=== PATIENT | female | born 1945 | race Caucasian/White ===

== ENCOUNTER → 2017-02-09 | Outpatient (REF) | payer MEDICARE, OTHER | LOC: M LAB REF 13:21 | PROVIDERS: ATTEND Internal Medicine Nephrology | DX: N39.0 Urinary tract infection, site not specified (principal) ==

== ENCOUNTER 2017-09-01 09:19 | Day surgery (SDC) | payer MEDICARE, OTHER ==
[~2017-09-01 09:19] MED LIST: ACETAMINOPHEN 325 MG TAB PO; BSS with VANC/TOB/EPI for EYE CASES IR; PHENYLEPHRINE HCL 10 % OPHTH. SOL 5ML OS; PROPARACAINE 0.5% OPHTH SOL 15ML OS
[2017-09-01] MEDS: LIDOCAINE 3.5 % 1ML OPHTH TOPICAL GEL OU (09:50)
[2017-09-01] MEDS: CYCLOPENTOLATE 2% OPHTH SOLN 2ML BTL OS (09:55)
[2017-09-01] MEDS: PHENYLEPHRINE 2.5% OPHTH SOL 2ML OS (09:55)
[2017-09-01] MEDS: TROPICAMIDE 1% OPHTH SOLN 2ML OS (10:00)
[2017-09-01] MEDS: OFLOXACIN 0.3 % (OCUFLOX) OPTH SOL 5ML OS (10:05)
[2017-09-01] MEDS: LIDOCAINE 1% SDV 5 ML VIAL As Ordered (11:35)
[2017-09-01] MEDS: BALANCED SALT IRRIGATION SOLUTION 500ML BAG (FOR OR EYE MACHINE) As Ordered (11:35)
[2017-09-01] MEDS: ACETYLCHOLINE OPHTH SOLN 1% 2ML (MIOCHOL-E) As Ordered (11:35)
[2017-09-01] MEDS: POVIDONE-IODINE 5% OPHTH PREP SOL 30ML As Ordered (11:35)
[2017-09-01] MEDS: CEFUROXIME 1MG/0.1ML INTRACAMERAL INJ As Ordered (11:35)
[2017-09-01] MEDS: HEALON DUET (HEALON 10MG/ML 0.55ML & HEALON ENDOCOAT 30MG/ML 0.85ML) As Ordered (11:36)
[2017-09-01] MEDS ORDERED: MIDAZOLAM INJ 2 MG/2 ML VIAL (J2250) As Ordered (11:49)
[2017-09-01] MEDS ORDERED: fentaNYL 100 MCG/2 ML INJECTION (J3010) As Ordered (11:49)
[2017-09-01] MEDS ORDERED: TRIMETHOBENZAMIDE 300 MG CAP PO (12:00)
[2017-09-01] MEDS: KETOROLAC 0.5% OPHTH SOLN OS (12:05)
== END 2017-09-01 12:37 | disposition home or self-care (01) ==
LOC: M SDC 09:19
DX: H25.12 Age-related nuclear cataract, left eye (principal); I25.10 Atherosclerotic heart disease of native coronary artery without angina pectoris; M32.10 Systemic lupus erythematosus, organ or system involvement unspecified; I10 Essential (primary) hypertension; E78.5 Hyperlipidemia, unspecified; E03.9 Hypothyroidism, unspecified; K21.9 Gastro-esophageal reflux disease without esophagitis; M06.9 Rheumatoid arthritis, unspecified; Z98.61 Coronary angioplasty status; Z79.82 Long term (current) use of aspirin
CPT/HCPCS: 66984

== ENCOUNTER 2017-09-29 10:51 | Day surgery (SDC) | payer MEDICARE, OTHER ==
[~2017-09-29 10:51] MED LIST changes: -BSS with VANC/TOB/EPI for EYE CASES IR; +CYCLOPENTOLATE 2% OPHTH SOLN 2ML BTL OD; +LIDOCAINE 3.5 % 1ML OPHTH TOPICAL GEL OU; +OFLOXACIN 0.3 % (OCUFLOX) OPTH SOL 5ML OD; +PHENYLEPHRINE 2.5% OPHTH SOL 2ML OD; +PHENYLEPHRINE HCL 10 % OPHTH. SOL 5ML OD; -PHENYLEPHRINE HCL 10 % OPHTH. SOL 5ML OS; +PROPARACAINE 0.5% OPHTH SOL 15ML OD; -PROPARACAINE 0.5% OPHTH SOL 15ML OS; +TROPICAMIDE 1% OPHTH SOLN 2ML OD
[2017-09-29] MEDS ORDERED: LIDOCAINE 1% MDV 20ML VIAL SQ (11:00)
[2017-09-29] MEDS ORDERED: CYCLOPENTOLATE 2% OPHTH SOLN 2ML BTL As Ordered (11:08)
[2017-09-29] MEDS ORDERED: OFLOXACIN 0.3 % (OCUFLOX) OPTH SOL 5ML As Ordered (11:08)
[2017-09-29] MEDS ORDERED: PHENYLEPHRINE 2.5% OPHTH SOL 2ML As Ordered (11:08)
[2017-09-29] MEDS ORDERED: TROPICAMIDE 1% OPHTH SOLN 2ML As Ordered (11:08)
[2017-09-29] MEDS: LIDOCAINE 3.5 % 1ML OPHTH TOPICAL GEL OU (11:46)
[2017-09-29] MEDS: OFLOXACIN 0.3 % (OCUFLOX) OPTH SOL 5ML OD (11:46)
[2017-09-29] MEDS: CYCLOPENTOLATE 2% OPHTH SOLN 2ML BTL OD (11:47)
[2017-09-29] MEDS: TROPICAMIDE 1% OPHTH SOLN 2ML OD (11:47)
[2017-09-29] MEDS: PHENYLEPHRINE 2.5% OPHTH SOL 2ML OD (11:47)
[2017-09-29] MEDS ORDERED: MIDAZOLAM INJ 2 MG/2 ML VIAL (J2250) As Ordered (12:14)
[2017-09-29] MEDS ORDERED: fentaNYL 100 MCG/2 ML INJECTION (J3010) As Ordered (12:14)
[2017-09-29] MEDS: POVIDONE-IODINE 5% OPHTH PREP SOL 30ML As Ordered (12:31)
[2017-09-29] MEDS: BALANCED SALT IRRIGATION SOLUTION 500ML BAG (FOR OR EYE MACHINE) As Ordered (12:34)
[2017-09-29] MEDS: LIDOCAINE 1% SDV 5 ML VIAL As Ordered (12:34)
[2017-09-29] MEDS: HEALON DUET (HEALON 10MG/ML 0.55ML & HEALON ENDOCOAT 30MG/ML 0.85ML) As Ordered (12:40)
[2017-09-29] MEDS: CEFUROXIME 1MG/0.1ML INTRACAMERAL INJ As Ordered (12:41)
[2017-09-29] MEDS ORDERED: TRIMETHOBENZAMIDE 300 MG CAP PO (13:00)
[2017-09-29] MEDS: KETOROLAC 0.5% OPHTH SOLN OD (13:15)
== END 2017-09-29 13:45 | disposition home or self-care (01) ==
LOC: M SDC 10:51
DX: H25.11 Age-related nuclear cataract, right eye (principal); E03.9 Hypothyroidism, unspecified; M32.9 Systemic lupus erythematosus, unspecified; D89.9 Disorder involving the immune mechanism, unspecified; I11.9 Hypertensive heart disease without heart failure; I25.10 Atherosclerotic heart disease of native coronary artery without angina pectoris; Z95.5 Presence of coronary angioplasty implant and graft; E78.00 Pure hypercholesterolemia, unspecified; K21.9 Gastro-esophageal reflux disease without esophagitis; M06.9 Rheumatoid arthritis, unspecified; Z88.2 Allergy status to sulfonamides; Z79.899 Other long term (current) drug therapy; Z79.82 Long term (current) use of aspirin; Z79.02 Long term (current) use of antithrombotics/antiplatelets
CPT/HCPCS: 66984

== ENCOUNTER → 2017-11-12 | Outpatient (REF) | payer MEDICARE, OTHER ==
[2017-11-16 14:14] LABS: METHYLMALONIC ACID 258 nmol/L (0-378)
== END ==
LOC: M LAB REF 13:48
DX: D53.9 Nutritional anemia, unspecified (principal)
CPT/HCPCS: 82668

== ENCOUNTER → 2017-11-23 | Outpatient (REF) | payer MEDICARE, OTHER | LOC: M LAB REF 13:27 | DX: D69.6 Thrombocytopenia, unspecified (principal) | CPT/HCPCS: 88300 ==

== ENCOUNTER → 2017-12-02 | Outpatient (REF) | payer MEDICARE, OTHER ==
[2017-12-02 19:44] LABS: VITAMIN B12 LEVEL 364 PG/ML
[2017-12-02 20:23] LABS: ERYTHROCYTE SEDIMENTATION RATE 81 mm/hr (0-30); REASON FOR REVIEW ANEMIA / RBC MORPH; SLIDE REVIEW Report; SOURCE PERIPHERAL SMEAR
[2017-12-02 23:39] LABS: FOLATE 13.6 NG/ML
== END ==
LOC: M LAB REF 17:40
DX: D69.6 Thrombocytopenia, unspecified (principal); D53.9 Nutritional anemia, unspecified
CPT/HCPCS: 82746

== ENCOUNTER → 2019-04-08 | Outpatient (CLI) | payer MEDICARE, OTHER ==
[~2019-04-08] MED LIST changes: -ACETAMINOPHEN 325 MG TAB PO; +ASPI81TA85 PO; +AZAT50TA2 PO; -CYCLOPENTOLATE 2% OPHTH SOLN 2ML BTL OD; +ISOS30TAB PO; -LIDOCAINE 3.5 % 1ML OPHTH TOPICAL GEL OU; +LOSA50TA88 PO; +METO50TA7 PO; -OFLOXACIN 0.3 % (OCUFLOX) OPTH SOL 5ML OD; -PHENYLEPHRINE 2.5% OPHTH SOL 2ML OD; -PHENYLEPHRINE HCL 10 % OPHTH. SOL 5ML OD; +PLAQUENIL PO; +PLAV1TAB2 PO; +PRAV40TA2 PO; -PROPARACAINE 0.5% OPHTH SOL 15ML OD; +RANI150T PO; +SYNT50TA PO; -TROPICAMIDE 1% OPHTH SOLN 2ML OD
--- NOTE | 2019-04-08 15:57 | REP ---
Left wrist four views: There is demineralization. The joint spaces are unremarkable. There are no calcifications or foreign bodies. There is no fracture or dislocation. Impression: Demineralization, otherwise negative left wrist. Electronically Signed by Anthony Patel MD 04/08/2019 03:48 P
== END ==
LOC: M WUC 15:26
PROVIDERS: ATTEND Physician Assistant
DX: M25.532 Pain in left wrist (principal)

== ENCOUNTER → 2020-12-24 | Outpatient (REF) | payer MEDICARE, OTHER ==
[~2020-12-24] MED LIST changes: -ASPI81TA85 PO; +ASPI81TA86 PO
[2020-12-24 17:58] LABS: PERCENT SATURATION 28.4 % (13.2-45.0)
== END ==
LOC: M LAB REF 16:53
PROVIDERS: ATTEND Internal Medicine Nephrology
DX: D50.9 Iron deficiency anemia, unspecified (principal)

== ENCOUNTER → 2022-10-21 | Outpatient (REF) | payer MEDICARE, OTHER ==
[~2022-10-21] MED LIST changes: -AZAT50TA2 PO; +AZAT50TA37 PO; +CLOP75TA99 PO; +LOSA50TA28 PO; -LOSA50TA88 PO; -PLAV1TAB2 PO
== END ==
LOC: M LAB REF 16:59
PROVIDERS: ATTEND Internal Medicine Nephrology
DX: N39.0 Urinary tract infection, site not specified (principal)

== ENCOUNTER → 2023-11-09 | Outpatient (REF) | payer MEDICARE, OTHER ==
[2023-11-09 18:40] LABS: PERCENT SATURATION 26.5 % (13.2-45.0)
== END ==
LOC: M LAB REF 17:37
PROVIDERS: ATTEND Internal Medicine Nephrology
DX: D50.9 Iron deficiency anemia, unspecified (principal)

== ENCOUNTER → 2024-01-18 | Outpatient (CLI) | payer MEDICARE, OTHER ==
[2024-01-18 15:36] LABS: BASO % 0.5 % (0.0-1.0); EOS # 0.1 10^3/uL (0.0-0.5); EOS % 2.3 % (0.0-3.0); HEMATOCRIT 32.1 % (36.0-47.0); HEMOGLOBIN 10.5 g/dl (12.0-15.5); LYMPH # 0.5 10^3/uL (1.5-5.0); LYMPH % 7.7 % (24.0-44.0); MEAN CORPUSCULAR HEMOGLOBIN 32.2 pg (27.0-33.0); MEAN CORPUSCULAR HGB CONC 32.7 g/dl (32.0-36.5); MEAN CORPUSCULAR VOLUME 98.5 fl (80.0-96.0); MONO # 0.8 10^3/uL (0.0-0.8); MONO % 12.7 % (2.0-8.0); NEUTROPHILS # 4.8 10^3/uL (1.5-8.5); NEUTROPHILS % 76.5 % (36.0-66.0); PLATELET COUNT, AUTOMATED 130 10^3/uL (150-450); RED BLOOD COUNT 3.26 10^6/uL (4.00-5.40); WHITE BLOOD COUNT 6.2 10^3/uL (4.0-10.0)
[2024-01-18 16:00] LABS: IRON (FE) 49 UG/DL (50-170)
[2024-01-18 16:02] LABS: ALKALINE PHOSPHATASE 84 U/L (46-116); ALT/SGPT 15 U/L (7.0-40); AST/SGOT 20 U/L (<34); BILIRUBIN,TOTAL 0.7 MG/DL (0.3-1.2); BLOOD UREA NITROGEN 17 MG/DL (9-23); CALCIUM LEVEL 9.4 MG/DL (8.3-10.6); CARBON DIOXIDE LEVEL 25 MMOL/L (20-31); CHLORIDE LEVEL 106 MMOL/L (98-107); CREATININE FOR GFR 1.21 MG/DL (0.55-1.30); FERRITIN 79.9 NG/ML (7.3-270.7); FREE T4 1.22 NG/DL (0.89-1.76); GLOMERULAR FILTRATION RATE 45.6 (>32); GLUCOSE, FASTING 95 MG/DL (74-106); POTASSIUM SERUM 4.8 MMOL/L (3.5-5.1); SODIUM LEVEL 135 MMOL/L (136-145); TOTAL PROTEIN 8.5 G/DL (5.7-8.2)
[2024-01-18 16:03] LABS: THYROID STIMULATING HORMONE 1.495 uIU/ML (0.55-4.78)
[2024-01-18 16:05] LABS: VITAMIN B12 LEVEL > 2000 PG/ML (211-911)
[2024-01-19 07:17] LABS: PROTEIN, TOTAL SO 8.8 g/dL (6.1-8.1)
[2024-01-19 12:56] LABS: FREE KAPPA LIGHT CHAINS SERUM 177.2 mg/L (3.3-19.4); FREE LAMBDA LIGHT CHAINS SERUM 189.8 mg/L (5.7-26.3); KAPPA/LAMBDA RATIO SERUM 0.93 (0.26-1.65)
== END ==
LOC: M PLALAB 09:37
PROVIDERS: ATTEND Internal Medicine Hematology
DX: D53.9 Nutritional anemia, unspecified (principal)

== ENCOUNTER → 2024-04-04 | Outpatient (CLI) | payer MEDICARE, OTHER ==
[~2024-04-04] MED LIST changes: +DILT180C38; +HYDR200T46 PO; +LIDOCAINE 1% MDV 20ML VIAL As Ordered ONE; +SLOW142T5 PO
[2024-04-04 08:10] VITALS: TEMP 97.8
[2024-04-04 08:56] LABS: BASO % 0.6 % (0.0-1.0); EOS # 0.1 10^3/uL (0.0-0.5); HEMATOCRIT 31.4 % (36.0-47.0); LYMPH # 0.3 10^3/uL (1.5-5.0); LYMPH % 6.1 % (24.0-44.0); MEAN CORPUSCULAR HEMOGLOBIN 30.6 pg (27.0-33.0); MEAN CORPUSCULAR HGB CONC 31.8 g/dl (32.0-36.5); MONO # 0.7 10^3/uL (0.0-0.8); MONO % 13.5 % (2.0-8.0); NEUTROPHILS # 3.8 10^3/uL (1.5-8.5); NEUTROPHILS % 77.4 % (36.0-66.0); PLATELET COUNT, AUTOMATED 143 10^3/uL (150-450); RED BLOOD COUNT 3.27 10^6/uL (4.00-5.40)
[2024-04-04 09:21] VITALS: BP 176/81; O2SAT 96
== END ==
LOC: M IRPRO 08:01
PROVIDERS: ATTEND Internal Medicine Hematology
DX: D64.9 Anemia, unspecified (principal); E88.09 Other disorders of plasma-protein metabolism, not elsewhere classified

== ENCOUNTER → 2024-04-13 | Outpatient (REF) | payer MEDICARE, OTHER ==
[~2024-04-13] MED LIST changes: -LIDOCAINE 1% MDV 20ML VIAL As Ordered ONE
[2024-04-13 12:08] LABS: APPEARANCE, URINE HAZY (CLEAR); BACTERIA, URINE AUTO NEGATIVE (NEGATIVE); BILIRUBIN, URINE AUTO NEGATIVE (NEGATIVE); BLOOD, URINE BLOOD NEGATIVE (NEGATIVE); COLOR, URINE YELLOW (YELLOW); GLUCOSE, URINE (UA) AUTO NEGATIVE (NEGATIVE); KETONE, URINE AUTO NEGATIVE (NEGATIVE); LEUKOCYTE ESTERASE, URINE AUTO 1+ (NEGATIVE); MUCUS, URINE SMALL (NEGATIVE); NITRITE, URINE AUTO NEGATIVE (NEGATIVE); PROTEIN, URINE AUTO NEGATIVE (NEGATIVE); RBC, URINE AUTO 2 /HPF (0-3); SPECIFIC GRAVITY URINE AUTO 1.013 (1.002-1.035); SQUAMOUS EPITHELIAL CELL UR AU 8 /HPF (0-6); UROBILINOGEN, URINE AUTO 0.2 mg/dL (0.0-2.0); WBC, URINE AUTO 7 /HPF (0-3)
[2024-04-13 12:09] LABS: HEMATOCRIT 29.8 % (36.0-47.0); HEMOGLOBIN 9.6 g/dl (12.0-15.5); MEAN CORPUSCULAR HEMOGLOBIN 31.1 pg (27.0-33.0); MEAN CORPUSCULAR HGB CONC 32.2 g/dl (32.0-36.5); MEAN CORPUSCULAR VOLUME 96.4 fl (80.0-96.0); PLATELET COUNT, AUTOMATED 132 10^3/uL (150-450); RED BLOOD COUNT 3.09 10^6/uL (4.00-5.40); WHITE BLOOD COUNT 4.2 10^3/uL (4.0-10.0)
[2024-04-13 12:28] LABS: ALBUMIN 2.5 G/DL (3.2-5.2); BILIRUBIN,TOTAL 0.6 MG/DL (0.3-1.2); CALCIUM LEVEL 9.7 MG/DL (8.3-10.6); CREATININE FOR GFR 1.25 MG/DL (0.55-1.30); GLOMERULAR FILTRATION RATE 43.9 (>32); POTASSIUM SERUM 4.5 MMOL/L (3.5-5.1); TOTAL PROTEIN 8.5 G/DL (5.7-8.2)
[2024-04-13 13:30] LABS: COMPLEMENT C3 119.2 MG/DL (90.0-170.0)
== END ==
LOC: M LAB REF 11:33
PROVIDERS: ATTEND Internal Medicine Rheumatology
DX: M35.00 Sjogren syndrome, unspecified (principal); M32.9 Systemic lupus erythematosus, unspecified

== ENCOUNTER → 2025-01-23 | Outpatient (CLI) | payer MEDICARE, OTHER ==
[~2025-01-23] MED LIST changes: +CHOL4PW PO; -DILT180C38; +DILT180C38 PO; +ISOS-18 PO; +ISOS1TAB35 PO; -ISOS30TAB PO; +LASI40TA9 PO; +META1POW PO; +PANT20TA6 PO; -PRAV40TA2 PO; +PRAV40TA85 PO; +PRED-1142; +PRED20TA PO; +PRED25TA PO; +SPIR100T3 PO
[2025-01-23 12:00] VITALS: BP 134/88; TEMP 98.5; O2SAT 95
== END ==
LOC: M IRPRO 11:52
PROVIDERS: ATTEND Internal Medicine Nephrology
DX: K74.69 Other cirrhosis of liver (principal)

== ENCOUNTER → 2025-01-31 | Outpatient (CLI) | payer MEDICARE, OTHER | LOC: M IRPRO 12:49 | PROVIDERS: ATTEND Internal Medicine Nephrology | DX: K74.69 Other cirrhosis of liver (principal) ==

== ENCOUNTER → 2025-02-18 | Outpatient (REF) | LOC: M CAHLAB 08:49 | PROVIDERS: ATTEND Student in an Organized Health Care Education/Training Program | DX: Z01.89 Encounter for other specified special examinations (principal) ==

== ENCOUNTER → 2025-02-22 | Outpatient (CLI) | payer MEDICARE, OTHER ==
[~2025-02-22] MED LIST changes: +MIDAZOLAM INJ 2 MG/2 ML VIAL IV PRN
[2025-02-22 13:35] VITALS: BP 124/59; TEMP 99.2; O2SAT 96
[2025-02-22] MEDS: ceFAZolin SODIUM 2 GM in DEXTROSE 5% (D5W) ADV/MINI-BAG 50 ML IV ONE (13:58)
[2025-02-22] MEDS: SODIUM CHLORIDE 0.9% 1000 ML XX SCH (14:32)
[2025-02-22] MEDS: NS (Normal Saline) 0.9% 1,000 ML IV SCH (14:33)
[2025-02-22] MEDS: LIDOCAINE 1% MDV 20 ML VIAL SC SCH (14:46)
== END ==
LOC: M IRPRO 13:13
DX: R10.9 Unspecified abdominal pain (principal); R18.8 Other ascites
CPT/HCPCS: 49405; J0690